=== PATIENT | male | born 1995 | race Caucasian/White ===

== ENCOUNTER 2020-02-21 02:47 | Inpatient (IN) ==
[2020-02-21] MEDS ORDERED: fentaNYL citrate 100 MCG/2 ML VIAL IV STA (03:04)
[2020-02-21] MEDS ORDERED: ONDANSETRON INJ 2 MG/ML 2 ML VIAL IV STA (03:04)
[2020-02-21] MEDS ORDERED: SODIUM CHLORIDE 0.9% 1000ML 1,000 ML IV SCH (03:15)
[2020-02-21 03:39] LABS: Basophils # (auto) 0.02 K/uL (0-0.2); Basophils % (auto) 0.2 %; Eosinophils # (auto) 0.02 K/uL (0-0.5); Eosinophils % (auto) 0.2 %; Hematocrit (blood only) 44.5 % (42-52); Hemoglobin 15.4 g/dL (14.0-18.0); Immature Granulocytes # (auto) 0.03 K/uL (0.00-0.02); Immature Granulocytes % (auto) 0.2 %; Lymphocytes # (auto) 1.03 K/uL (1.2-3.4); Lymphocytes % (auto) 8.4 %; Mean Corpuscular Hgb Conc 34.6 g/dL (32-36); Mean Corpuscular Volume 86.6 fL (80-100); Monocytes # (auto) 0.62 K/uL (0.11-0.59); Neutrophils # (auto) 10.59 K/uL (1.4-6.5); Platelet Count 248 K/uL (130-400); RDW Standard Deviation 38.3 fL (36.4-46.3); Red Blood Count 5.14 M/uL (4.7-6.1); White Blood Count 12.31 K/uL (4.8-10.8)
[2020-02-21 04:07] LABS: Albumin Level 4.4 gm/dl (3.4-5.0); BUN Creatinine Ratio 19.2 (10-20); Calcium 8.6 mg/dl (8.5-10.1); Creatinine Clr Calc Pharmacy 158.5 ml/min; Est GFR (African American) 137.2; Est GFR (Non-African American) 118.4; Potassium 4.1 mmol/L (3.5-5.1)
[2020-02-21 04:10] LABS: Albumin Globulin Ratio 1.2 (0.9-2); Bilirubin,Total 0.6 mg/dl (0.2-1); Globulin 3.6 gm/dl (2.5-4.0)
[2020-02-21] MEDS ORDERED: fentaNYL citrate 100 MCG/2 ML VIAL IV PRN ×2 (05:18→09:24)
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
--- NOTE | 2020-02-21 07:38 | Anesthesiology Consultation ---
Date of Service February 21, 2020 Assessment & Plan (1) Encounter for pre-operative examination: Chart Review Chart Review: Acceptable Risk for Surgery History Surgery Operation Date: 02/21/20 09:30 Proposed Procedures p Open Reduction Internal Fixation Arm(Left) - Lio Marquez DO Height/Weight Height: 6 ft 1 in Weight: 102 kg Allergies Allergy/AdvReac Type Severity Reaction Status Date / Time No Known Allergies Allergy Unverified 02/21/20 03:07 Medications Home Medications Medication Instructions Recorded Confirmed Last Taken escitalopram oxalate 10 mg PO DAILY 02/21/20 02/21/20 02/20/20 Active Medications Generic Name Dose Route Start Last Admin Trade Name Freq PRN Reason Stop Dose Admin Fentanyl Citrate 100 mcg 02/21/20 05:18 02/21/20 06:29 Fentanyl Citrate 100 Mcg/2 Ml Vial IV 03/06/20 05:17 100 mcg Q1H PRN Administration Pain NPO Date Last Intake of Fluids: 02/21/20 Time Last Intake of Fluids: 00:00 Date Last Intake of Solids: 02/21/20 Time Last Intake of Solids: 00:00 Past Medical History Medical History (Updated 02/21/20 @ 09:19 by Marlon Garcia MD) Anxiety Past Surgical History Surgical History (Updated 02/21/20 @ 09:19 by Marlon Garcia MD) Hx of removal of cyst Social History Smoking Status: Never smoker Physical Exam Vital Signs Last Vital Signs Temp 37.1 C 02/21/20 02:54 Pulse 84 02/21/20 08:30 Resp 22 02/21/20 08:30 BP 162/93 H 02/21/20 08:30 Pulse Ox 93 02/21/20 08:30 Testing Laboratory Results 02/21/20 03:18 02/21/20 03:18 Blood Type O Negative 02/21/20 03:18 Antibody Screen NEGATIVE 02/21/20 03:18
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
[2020-02-21] MEDS ORDERED: ROPIVACAINE 0.5% 5 MG/ML 30 ML VIAL ONE (07:49)
--- NOTE | 2020-02-21 07:52 | CT Scan Report ---
CERVICAL SPINE CT CT DOSE: HISTORY: trauma TECHNIQUE: Multiaxial CT images of the cervical spine were performed and reformatted in the sagittal and coronal plane without the use of contrast. A dose lowering technique was utilized adhering to th e principles of ALARA. COMPARISON: None. FINDINGS: No fractures. No subluxation. Prevertebral soft tissues and the C1-C2 interval are intact. No pneumothorax. IMPRESSION: No fractures within the cervical spine. ACT 112: Negative or not required by law. Electronically signed by: David Thomas M.D. 02/21/2020 7:50 AM
[2020-02-21] MEDS ORDERED: ONDANSETRON 4 MG OD TAB PO STA (08:01)
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
[2020-02-21] MEDS ORDERED: BACITRACIN INJ 50,000 UNIT VIAL ONE (09:17)
[2020-02-21] MEDS ORDERED: BUPIVACAINE 0.5 % 5 MG/1 ML MPF 30ML VIAL ONE (09:17)
[2020-02-21] MEDS ORDERED: ONDANSETRON INJ 2 MG/ML 2 ML VIAL IV PRN ×2 (09:24→14:36)
[2020-02-21] MEDS ORDERED: LABETALOL HCL IV 5 MG/ML 20ML IV PRN (09:24)
[2020-02-21] MEDS ORDERED: KETOROLAC 30 MG/ML VIAL IV PRN (09:24)
[2020-02-21] MEDS ORDERED: ATROPINE SULFATE 0.1 MG/ML 10ML SYR IV PRN (09:24)
--- NOTE | 2020-02-21 09:28 | History & Physical Bridge Note ---
Date of Service February 21, 2020 History & Physical Bridge Note I have examined the patient, reviewed the History & Physical and in the interval since the performance of the History & Physical I have noted the following changes of clinical significance: Will require open reduction internal fixation both bone forearm fractures with orthopedic plates and screws.
[2020-02-21] MEDS ORDERED: MIDAZOLAM HCL 1 MG/ML 2ML VIAL ONE ×2 (09:31)
[2020-02-21] MEDS ORDERED: fentaNYL citrate 100 MCG/2 ML VIAL ONE ×2 (09:32→11:51)
[2020-02-21] MEDS ORDERED: LIDOCAINE HCL 2% 2 ML VIAL/AMP(20MG/ML) INFIL ONE (10:31)
[2020-02-21] MEDS ORDERED: ONDANSETRON INJ 2 MG/ML 2 ML VIAL ONE (10:32)
[2020-02-21] MEDS ORDERED: PROPOFOL IV EMULSION 10 MG/ML 20 ML VIAL IV ONE (10:32)
[2020-02-21] MEDS ORDERED: PHENYLEPHRINE 100MCG/ML 5ML SYR ONE (10:32)
--- NOTE | 2020-02-21 10:47 | Electrocardiogram Report ---
Test Reason : Blood Pressure : / mmHG Vent. Rate : 085 BPM Atrial Rate : 085 BPM P-R Int : 144 ms QRS Dur : 088 ms QT Int : 358 ms P-R-T Axes : 039 063 020 degrees QTc Int : 426 ms Normal sinus rhythm Normal ECG No previous ECGs available Confirmed by Shilo Murillo ([id number]) on 02/21/2020 10:47:23 AM Referred By: REFERRED SELF Confirmed By:Donald Murillo
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
--- NOTE | 2020-02-21 12:31 | Fluoroscopy Report ---
FL forearm LT 2V CLINICAL HISTORY: ORIF LT FOREARM IN OR COMPARISON STUDY: Left forearm 02/21/2020. FLUOROSCOPY TIME: 35 seconds. FINDINGS: 5 fluoroscopic spot images of the proximal forearm demonstrate cortical plate and screws tr ansfixing the proximal radius and ulnar fractures. The hardware appears intact. Alignment appears niharika r-anatomic. IMPRESSION: Fluoroscopy provided for internal fixation of the left forearm fracture. ACT 112: Negative or not required by law. Electronically signed by: David Thomas M.D. 02/21/2020 12:30 PM
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
--- NOTE | 2020-02-21 14:11 | Anesthesiology Progress Note ---
Date of Service February 21, 2020 Anesthesia Post Procedure Vital Signs Vital Signs: Temp Pulse Pulse Resp BP BP Pulse Ox 02/21/20 14:00 104 H 18 128/84 94 02/21/20 13:50 103 H 17 128/78 95 02/21/20 13:42 37.5 C 101 H 18 116/63 95 02/21/20 08:30 84 22 162/93 H 93 02/21/20 08:00 88 22 153/90 H 95 02/21/20 07:30 90 23 150/93 H 94 02/21/20 07:00 92 H 14 155/98 H 93 02/21/20 06:30 91 H 24 152/89 H 93 02/21/20 06:00 18 128/56 L 94 02/21/20 05:30 134/74 94 02/21/20 05:00 91 H 24 147/85 H 93 02/21/20 04:36 90 18 152/87 H 93 02/21/20 04:34 89 24 152/87 H 93 02/21/20 04:00 104 H 24 140/88 93 02/21/20 03:36 106 H 24 142/106 H 95 02/21/20 03:26 103 H 18 94 02/21/20 03:18 96 02/21/20 02:54 37.1 C 104 H 20 155/96 H 95 Pain Intensity Left Arm: Pain Intensity: 0 Transfer of Care Handoff Completed per policy Notes Mental Status: alert / awake / arousable Patient Amnestic to Procedure: Yes Nausea / Vomiting: adequately controlled Pain: adequately controlled Airway Patency, RR, SpO2: stable & adequate BP & HR: stable & adequate Hydration State: stable & adequate Anesthetic Complications: no major complications apparent
[2020-02-21] MEDS ORDERED: diphenhydrAMINE Capsule 25 MG CAP PO PRN (14:36)
[2020-02-21] MEDS ORDERED: METOCLOPRAMIDE HCL INJ 5 MG/ML 2 ML VIAL IV PRN (14:36)
[2020-02-21] MEDS ORDERED: NALOXONE HCL 0.4 MG/1 ML VIAL/CARP IV PRN (14:36)
[2020-02-21] MEDS ORDERED: bisacodyL 10 MG SUPP PR PRN (14:36)
[2020-02-21] MEDS ORDERED: MAGNESIUM HYDROXIDE SUSP 30 ML UDC PO PRN (14:36)
[2020-02-21] MEDS: SODIUM CHLORIDE 0.9% 1000ML 1,000 ML IV SCH ×2 (14:45→23:17)
[2020-02-21] MEDS: ACETAMINOPHEN 500 MG TAB PO SCH ×2 (16:10→21:55)
[2020-02-21] MEDS: HYDROmorphone INJ 0.5 MG/0.5 ML SYR IV PRN ×3 (17:20→20:47)
[2020-02-21] MEDS: oxyCODONE HCL IR 5 MG TAB (IMMEDIATE RELEASE) PO PRN ×2 (17:29→23:20)
[2020-02-21] MEDS ORDERED: KETOROLAC 30 MG/ML VIAL ONE (18:37)
[2020-02-21] MEDS ORDERED: KETOROLAC TROMETHAMINE 15 MG/ML VIAL IM ONE (19:15)
[2020-02-21] MEDS: ceFAZolin 2000MG 2,000 MG/15 ML SYR IV SCH (19:42)
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
[2020-02-21] MEDS: SENNA 8.6 MG TAB PO SCH (20:51)
[2020-02-21] MEDS: DOCUSATE SODIUM 100 MG CAP PO SCH (20:51)
[2020-02-22] MEDS: ceFAZolin 2000MG 2,000 MG/15 ML SYR IV SCH (02:36)
[2020-02-22] MEDS: HYDROmorphone INJ 0.5 MG/0.5 ML SYR IV PRN ×2 (02:36→12:21)
[2020-02-22 02:43] LABS: Appearance Urine Clear (Clear); Bilirubin Urine Negative (Negative); Blood Urine Negative (Negative); Color Urine Dark Yellow; Glucose Urine UA Negative (Negative); Ketones Urine Negative (Negative); Leukocyte Esterase Urine Negative (Negative); Nitrite Urine Negative (Negative); Protein Urine Negative (Negative); Specific Gravity Urine 1.033 (1.000-1.030); Urobilinogen Urine Negative (Negative)
[2020-02-22] MEDS: ACETAMINOPHEN 500 MG TAB PO SCH ×3 (05:27→21:15)
[2020-02-22] MEDS: oxyCODONE HCL IR 5 MG TAB (IMMEDIATE RELEASE) PO PRN ×5 (05:28→21:14)
[2020-02-22 06:13] LABS: Hematocrit (blood only) 40.4 % (42-52); Hemoglobin 13.7 g/dL (14.0-18.0); Mean Corpuscular Hemoglobin 29.8 pg (25-34); Mean Corpuscular Hgb Conc 33.9 g/dL (32-36); Mean Corpuscular Volume 87.8 fL (80-100); Mean Platelet Volume 10.1 fL (7.4-10.4); Platelet Count 182 K/uL (130-400); RDW Standard Deviation 38.5 fL (36.4-46.3); White Blood Count 7.51 K/uL (4.8-10.8)
[2020-02-22 06:46] LABS: BUN Creatinine Ratio 12.7 (10-20); Calcium 8.1 mg/dl (8.5-10.1); Creatinine Clr Calc Pharmacy 155.1 ml/min; Est GFR (African American) 133.6; Est GFR (Non-African American) 115.3; Potassium 3.6 mmol/L (3.5-5.1)
[2020-02-22] MEDS: MULTIVITAMIN TAB PO SCH (07:32)
[2020-02-22] MEDS: ESCITALOPRAM OXALATE 10 MG TAB PO SCH (07:32)
[2020-02-22] MEDS: ASPIRIN 81 MG ECTAB PO SCH (07:32)
[2020-02-22] MEDS: DOCUSATE SODIUM 100 MG CAP PO SCH ×2 (07:35→21:14)
--- NOTE | 2020-02-22 11:39 | Orthopedic Progress Note ---
Date of Service February 22, 2020 Assessment & Plan (1) Closed fracture of middle of left radius and ulna: Postop day #1 status post 1. Open reduction and internal fixation of left proximal one-third radius and ulna fractures. 2. Delayed closure of dorsal lateral forearm incision with application of rubber catheter closure Dressing change today because of bloody saturation at the posterior aspect of the elbow. Posterior splint reapplied. Ice and elevate as much as possible throughout the day to decrease swelling. We will have the patient be n.p.o. after midnight tonight for possible wound closure tomorrow. Discharge planningwe will discharge after wounds have been closed. DVT prophylaxisaspirin 81 mg daily for 30 days. Admission and Anticipated Discharge Date Admission Date: February 21, 2020 Subjective Pain is controlled in the left upper extremity. With motion of the left upper extremity for dressing change she does complain of pain and some nausea. He states he has sensation within the left hand but does have a little bit of tingling. Denies chest pain, shortness of breath, lightheadedness. Physical Exam Constitutional: WD/WN, vitals as above no acute distress Musculoskeletal: Extremities: + elbow/forearm abnormality Left (Moderate swelling of the left hand. No erythema. Tender with manipulation of the left upper extremity for dressing change.) Skin: no rashes, warm and dry Left upper extremity: The incision along the ulna is well approximated. No drainage or erythema noted. The radial incision is stable with rubber catheter closure intact at the distal aspect of the incision. The proximal aspect of the incision is well approximated. Neurologic: Mild paresthesias within the left hand. Sensation in tact to light touch. He is able to move all fingers on the left side. Active wrist extension and flexion intact with minimal motion. Psychiatric: A+Ox3, euthymic affect Speech: normal rate/rhythm/volume of speech Results & Data ([facility]) Vital Signs (Past 12 Hours) Vital Signs Temp Pulse Resp BP Pulse Ox 02/22/20 07:34 37.3 C 99 H 18 146/90 H 92 02/21/20 23:49 36.9 C 79 14 148/92 H 95
[2020-02-22] MEDS: SENNA 8.6 MG TAB PO SCH (21:14)
[2020-02-23] MEDS: oxyCODONE HCL IR 5 MG TAB (IMMEDIATE RELEASE) PO PRN (04:09)
[2020-02-23] MEDS: ACETAMINOPHEN 500 MG TAB PO SCH ×3 (06:20→21:16)
[2020-02-23] MEDS: MULTIVITAMIN TAB PO SCH (08:11)
[2020-02-23] MEDS: ASPIRIN 81 MG ECTAB PO SCH (08:12)
[2020-02-23] MEDS: DOCUSATE SODIUM 100 MG CAP PO SCH ×2 (08:12→21:15)
[2020-02-23] MEDS: ESCITALOPRAM OXALATE 10 MG TAB PO SCH (08:12)
--- NOTE | 2020-02-23 15:55 | Anesthesiology Consultation ---
Date of Service February 23, 2020 Assessment & Plan (1) Encounter for pre-operative examination: Chart Review Chart Review: Acceptable Risk for Surgery and Patient NOT seen in Pre Admission Testing covid negative 02/21/2020 Consults Requested none History Surgery Operation Date: 02/21/20 09:30 Proposed Procedures p Open Reduction Internal Fixation Arm(Left) - Lio Marquez DO Operation Date: 02/23/20 07:00 Proposed Procedures p Left Upper Extremity Closure of Surgical Wound - Lio Marquez DO Height/Weight Height: 6 ft 1 in Weight: 102 kg Allergies Allergy/AdvReac Type Severity Reaction Status Date / Time No Known Allergies Allergy Unverified 02/21/20 03:07 Medications Home Medications Medication Instructions Recorded Confirmed Last Taken aspirin 81 mg PO DAILY #30 tab 02/21/20 Unknown escitalopram oxalate 10 mg PO DAILY 02/21/20 02/21/20 02/20/20 oxycodone-acetaminophen [Percocet] 1 tab PO Q4H PRN #20 tab 02/21/20 Unknown Active Medications Generic Name Dose Route Start Last Admin Trade Name Freq PRN Reason Stop Dose Admin Acetaminophen 1,000 mg 02/21/20 14:36 02/23/20 13:47 Acetaminophen 500 Mg Tab PO 03/22/20 14:35 1,000 mg Q8 LUCIA Administration Aspirin 81 mg 02/22/20 09:00 02/23/20 08:12 Aspirin 81 Mg Ectab PO 03/23/20 08:59 81 mg DAILY LUCIA Administration Docusate Sodium 100 mg 02/21/20 21:00 02/23/20 08:12 Docusate Sodium 100 Mg Cap PO 03/22/20 20:59 100 mg BID LUCIA Administration Escitalopram Oxalate 10 mg 02/22/20 09:00 02/23/20 08:12 Escitalopram Oxalate 10 Mg Tab PO 03/23/20 08:59 10 mg DAILY LUCIA Administration Hydromorphone HCl 0.5 mg 02/21/20 14:36 02/22/20 12:21 Hydromorphone Inj 0.5 Mg/0.5 Ml Syr IV 03/06/20 14:35 0.5 mg Q2H PRN Administration Pain or Pre PT Multivitamins 1 tab 02/22/20 09:00 02/23/20 08:11 Multivitamin Tab PO 11/03/20 08:59 1 tab QAM LUCIA Administration Ondansetron HCl 4 mg 02/21/20 14:36 02/22/20 09:24 Ondansetron Inj 2 Mg/Ml 2 Ml Vial IV 03/22/20 14:35 4 mg Q6H PRN Administration Nausea And Vomiting Oxycodone HCl 5 - 10 mg 02/21/20 14:36 02/23/20 04:09 Oxycodone Hcl Ir 5 Mg Tab (Immediate Release) PO 03/06/20 14:35 10 mg Q4H PRN Administration Pain or Pre PT Sennosides 17.2 mg 02/21/20 21:00 02/22/20 21:14 Senna 8.6 Mg Tab PO 03/22/20 20:59 17.2 mg HS LUCIA Administration NPO Date Last Intake of Fluids: 02/21/20 Time Last Intake of Fluids: 00:00 Date Last Intake of Solids: 02/21/20 Time Last Intake of Solids: 00:00 Past Medical History Medical History Anxiety Exercise / Class Metabolic Activity II 4-5 Yardwork/Stairs/Walk up hill Past Surgical History Surgical History Hx of removal of cyst Past Anesthesia History No Hx of Anesthesia Complications and No Family Hx of Anesthesia Complications History of PONV No Hx of PONV and No Hx of Motion Sickness Social History Smoking Status: Never smoker Hx Alcohol Use: Yes Physical Exam Vital Signs Last Vital Signs Temp 37 C 02/23/20 16:48 Pulse 88 02/23/20 16:48 Resp 20 02/23/20 16:48 BP 150/91 H 02/23/20 16:48 Pulse Ox 98 02/23/20 16:48 Testing Laboratory Results 02/22/20 05:14 02/22/20 05:14 Urine Color Dark Yellow 02/22/20 02:33 Urine Appearance Clear (Clear) 02/22/20 02:33 Urine pH 6.0 (4.5-7.5) 02/22/20 02:33 Ur Specific [place] 1.033 (1.000-1.030) H 02/22/20 02:33 Urine Protein Negative (Negative) 02/22/20 02:33 Urine Glucose (UA) Negative (Negative) 02/22/20 02:33 Urine Ketones Negative (Negative) 02/22/20 02:33 Urine Nitrite Negative (Negative) 02/22/20 02:33 Ur Leukocyte Esterase Negative (Negative) 02/22/20 02:33 Blood Type O Negative 02/21/20 03:18 Antibody Screen NEGATIVE 02/21/20 03:18 Electrocardiogram Date: 02/21/20 Findings: + NSR @ (85) Normal sinus rhythm Normal ECG No previous ECGs available Confirmed by Shilo Murillo ([id number]) on 02/21/2020 10:47:23 AM Chest X-Ray Date: 02/21/20 XR chest 1V portable CLINICAL HISTORY: Pain status post trauma COMPARISON STUDY: No previous studies for comparison. FINDINGS: The cardiac and mediastinal contours are normal. There is no evidence of focal pulmonary consolidation. There is no evidence of failure. No pleural effusions are visualized.[No pneumothorax is visualized. IMPRESSION: No active disease in the chest.
[2020-02-23] MEDS ORDERED: MIDAZOLAM HCL 1 MG/ML 2ML VIAL ONE (16:55)
[2020-02-23] MEDS ORDERED: PROPOFOL IV EMULSION 10 MG/ML 20 ML VIAL IV ONE (16:56)
[2020-02-23] MEDS ORDERED: fentaNYL citrate 100 MCG/2 ML VIAL ONE ×2 (16:56→18:05)
[2020-02-23] MEDS ORDERED: ePHEDrine sulfate 50 MG/ML AMP IV PRN (16:56)
[2020-02-23] MEDS ORDERED: ONDANSETRON INJ 2 MG/ML 2 ML VIAL IV PRN (16:56)
[2020-02-23] MEDS ORDERED: HYDROmorphone INJ 1 MG/ML SYRINGE IV PRN (16:56)
[2020-02-23] MEDS ORDERED: ATROPINE SULFATE 0.1 MG/ML 10ML SYR IV PRN (16:56)
[2020-02-23] MEDS ORDERED: DEXAMETHASONE SOD INJ 4 MG/ML VIAL ONE ×2 (16:56)
[2020-02-23] MEDS ORDERED: fentaNYL citrate 100 MCG/2 ML VIAL IV PRN (16:56)
[2020-02-23] MEDS ORDERED: ONDANSETRON INJ 2 MG/ML 2 ML VIAL ONE (16:56)
[2020-02-23] MEDS ORDERED: LIDOCAINE HCL 2% 2 ML VIAL/AMP(20MG/ML) INFIL ONE (16:56)
--- NOTE | 2020-02-23 17:22 | History & Physical Bridge Note ---
Date of Service February 23, 2020 History & Physical Bridge Note I have examined the patient, reviewed the History & Physical and in the interval since the performance of the History & Physical I have noted the following changes of clinical significance: Will require irrigation and debridement left dorsal lateral forearm incision and delayed primary closure to be performed today in the OR.
[2020-02-23] MEDS: BUPIVACAINE 0.5 % 5 MG/1 ML MPF 30ML VIAL ONE ×2 (17:38→18:20)
[2020-02-23] MEDS: BACITRACIN INJ 50,000 UNIT VIAL ONE ×2 (17:38→18:20)
--- NOTE | 2020-02-23 18:45 | Post Operative Brief Note ---
Immediate Post Op Note v1 Date of Surgery February 23, 2020 Pre & Post Diagnosis Operation Date: 02/21/20 09:30 Pre-Op Diagnosis: 100% displaced, closed ulnar and radial fractures left arm; neuropraxia ulnar left arm; crush injury Post-Op Diagnosis: 100% displaced, closed ulnar and radial fractures left arm; neuropraxia ulnar left arm; crush injury Operation Date: 02/23/20 07:00 Pre-Op Diagnosis: Delayed closure of dorsal left lateral forearm incision, crush injury forearm left, neurapraxia ulnar left arm, both bone forearm fracture status post ORIF, delayed healing surgical incision Post-Op Diagnosis: Delayed closure of dorsal left lateral forearm incision, crush injury forearm left, neurapraxia ulnar left arm, both bone forearm fracture status post ORIF, delayed healing surgical incision I identified the patient and participated in the time-out.: Yes Procedure Operation Date: 02/21/20 09:30 Actual Procedures p Open Reduction Internal Fixation 100% displaced left closed ulnar and radial fractures, crush injury(Left) - Lio Marquez DO Operation Date: 02/23/20 07:00 Actual Procedures p Irrigation and debridement left forearm incision, placement of Asaf drains (x4), partial delayed primary wound closure left forearm (Bilateral) - Lio Maqruez DO Surgeon Lio Marquez DO Paleobotanist None Estimated Blood Loss 20 Findings Consistent with Post-Op Diagnosis Specimens None Drains Asaf Drain (x4) Anesthesia Type General Regional Complications none Disposition Accompanied Patient To Recovery: No Disposition: Recovery Room
--- NOTE | 2020-02-23 19:10 | Anesthesiology Progress Note ---
Date of Service February 23, 2020 Anesthesia Post Procedure Vital Signs Vital Signs: Temp Pulse Pulse Pulse Resp BP Pulse Ox 02/23/20 19:00 81 16 152/101 H 93 02/23/20 18:50 89 16 160/108 H 94 02/23/20 18:42 36.8 C 98 H 16 169/112 H 96 02/23/20 16:48 37 C 88 20 150/91 H 98 02/23/20 15:10 36.7 C 78 21 149/96 H 95 02/23/20 07:41 37 C 81 18 145/88 H 94 02/22/20 23:48 37.3 C 80 16 151/94 H 90 Pain Intensity Left Arm: Pain Intensity: 3 Transfer of Care Handoff Completed per policy Notes Mental Status: alert / awake / arousable and participated in evaluation Patient Amnestic to Procedure: Yes Nausea / Vomiting: adequately controlled Pain: adequately controlled Airway Patency, RR, SpO2: stable & adequate BP & HR: stable & adequate Hydration State: stable & adequate Anesthetic Complications: no major complications apparent and Pt Satisfied with anesthetic care
[2020-02-23] MEDS: SENNA 8.6 MG TAB PO SCH (21:15)
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
[2020-02-24] MEDS: ACETAMINOPHEN 500 MG TAB PO SCH ×3 (06:15→21:51)
[2020-02-24] MEDS: ESCITALOPRAM OXALATE 10 MG TAB PO SCH (09:15)
[2020-02-24] MEDS: ASPIRIN 81 MG ECTAB PO SCH (09:15)
[2020-02-24] MEDS: DOCUSATE SODIUM 100 MG CAP PO SCH ×2 (09:15→19:36)
[2020-02-24] MEDS: MULTIVITAMIN TAB PO SCH (09:15)
[2020-02-24] MEDS: oxyCODONE HCL IR 5 MG TAB (IMMEDIATE RELEASE) PO PRN (09:20)
--- NOTE | 2020-02-24 10:35 | Orthopedic Progress Note ---
Date of Service February 24, 2020 Assessment & Plan (1) Closed fracture of middle of left radius and ulna: Postop day #3 status post 1. Open reduction and internal fixation of left proximal one-third radius and ulna fractures. 2. Delayed closure of dorsal lateral forearm incision with application of rubber catheter closure Unable to do a primary closure yesterday. Planning for primary closure tomorrow. Ice and elevate as much as possible throughout the day to decrease swelling. We will have the patient be n.p.o. after midnight tonight for possible wound closure tomorrow. Discharge planningwe will discharge after wounds have been closed. DVT prophylaxisaspirin 81 mg daily for 30 days. Admission and Anticipated Discharge Date Admission Date: February 21, 2020 Subjective Patient currently sitting up in his chair at the bedside. Pain is controlled today. No complaints. Left upper extremity is in his sling at this time. Physical Exam Physical Exam: Dressings are clean, dry, and intact. Patient feels that he has a little less swelling in his hand and fingers today. Cap refill is less than 2 seconds. He has good flexion of all the fingers at this time but has weak extension with the third through fifth fingers. He states that the sensation is returning to the fourth and fifth fingers and it feels just like [id number] at this point in time. Results & Data ([facility]) Vital Signs (Past 12 Hours) Vital Signs Temp Pulse Resp BP Pulse Ox 02/24/20 09:30 36.6 C 91 H 20 139/87 96 02/24/20 03:55 36.7 C 63 16 129/83 95 02/23/20 23:41 36.9 C 72 16 137/82 95
[2020-02-24] MEDS: SENNA 8.6 MG TAB PO SCH (19:36)
[2020-02-25] MEDS: ACETAMINOPHEN 500 MG TAB PO SCH ×3 (06:29→21:28)
[2020-02-25] MEDS: ASPIRIN 81 MG ECTAB PO SCH (09:51)
[2020-02-25] MEDS: MULTIVITAMIN TAB PO SCH (09:51)
[2020-02-25] MEDS: DOCUSATE SODIUM 100 MG CAP PO SCH ×2 (09:51→21:28)
[2020-02-25] MEDS: ESCITALOPRAM OXALATE 10 MG TAB PO SCH (09:51)
[2020-02-25] MEDS ORDERED: fentaNYL citrate 100 MCG/2 ML VIAL ONE ×2 (15:04→17:05)
[2020-02-25] MEDS ORDERED: MIDAZOLAM HCL 1 MG/ML 2ML VIAL ONE (15:05)
[2020-02-25] MEDS ORDERED: BACITRACIN INJ 50,000 UNIT VIAL ONE (16:01)
[2020-02-25] MEDS ORDERED: BUPIVACAINE 0.5 % 5 MG/1 ML MPF 30ML VIAL ONE (16:02)
[2020-02-25] MEDS ORDERED: PROMETHAZINE HCL 12.5 MG in SODIUM CHLORIDE 0.9% 50 ML IV PRN (16:11)
[2020-02-25] MEDS ORDERED: fentaNYL citrate 100 MCG/2 ML VIAL IV PRN (16:11)
[2020-02-25] MEDS ORDERED: HYDROmorphone INJ 2 MG/ML SYR/VIAL IV PRN (16:11)
[2020-02-25] MEDS ORDERED: ONDANSETRON INJ 2 MG/ML 2 ML VIAL IV PRN (16:11)
[2020-02-25] MEDS ORDERED: ATROPINE SULFATE 0.1 MG/ML 10ML SYR IV PRN (16:11)
[2020-02-25] MEDS ORDERED: ePHEDrine sulfate 50 MG/ML AMP IV PRN (16:11)
--- NOTE | 2020-02-25 16:11 | Anesthesiology Consultation ---
Date of Service February 25, 2020 Assessment & Plan ASA ASA2 Proposed Anesthesia Anesthesia Type: General Risk / Benefits Reviewed With: PT / POA / Parent / Guardian, Accepts Plan and Informed Consent Obtained History Surgery Operation Date: 02/21/20 09:30 Proposed Procedures p Open Reduction Internal Fixation Arm(Left) - Lio Marquez DO Operation Date: 02/23/20 07:00 Proposed Procedures p Left Upper Extremity Closure of Surgical Wound - Lio Marquez DO Operation Date: 02/25/20 07:00 Proposed Procedures p Left Arm Irrigation and Debridement with Primary Wound Closure - Lio Marquez DO Height/Weight Height: 6 ft 1 in Weight: 102 kg Allergies Allergy/AdvReac Type Severity Reaction Status Date / Time No Known Allergies Allergy Unverified 02/21/20 03:07 Medications Home Medications Medication Instructions Recorded Confirmed Last Taken aspirin 81 mg PO DAILY #30 tab 02/21/20 Unknown escitalopram oxalate 10 mg PO DAILY 02/21/20 02/21/20 02/20/20 oxycodone-acetaminophen [Percocet] 1 tab PO Q4H PRN #20 tab 02/21/20 Unknown Active Medications Generic Name Dose Route Start Last Admin Trade Name Freq PRN Reason Stop Dose Admin Acetaminophen 1,000 mg 02/21/20 14:36 02/25/20 13:26 Acetaminophen 500 Mg Tab PO 03/22/20 14:35 1,000 mg Q8 LUCIA Administration Aspirin 81 mg 02/22/20 09:00 02/25/20 09:51 Aspirin 81 Mg Ectab PO 03/23/20 08:59 Not Given DAILY LUICA Docusate Sodium 100 mg 02/21/20 21:00 02/25/20 09:51 Docusate Sodium 100 Mg Cap PO 03/22/20 20:59 100 mg BID LUCIA Administration Escitalopram Oxalate 10 mg 02/22/20 09:00 02/25/20 09:51 Escitalopram Oxalate 10 Mg Tab PO 03/23/20 08:59 10 mg DAILY LUCIA Administration Hydromorphone HCl 0.5 mg 02/21/20 14:36 02/22/20 12:21 Hydromorphone Inj 0.5 Mg/0.5 Ml Syr IV 03/06/20 14:35 0.5 mg Q2H PRN Administration Pain or Pre PT Multivitamins 1 tab 02/22/20 09:00 02/25/20 09:51 Multivitamin Tab PO 03/23/20 08:59 1 tab QAM LUCIA Administration Ondansetron HCl 4 mg 02/21/20 14:36 02/22/20 09:24 Ondansetron Inj 2 Mg/Ml 2 Ml Vial IV 03/22/20 14:35 4 mg Q6H PRN Administration Nausea And Vomiting Oxycodone HCl 5 - 10 mg 02/21/20 14:36 02/24/20 09:20 Oxycodone Hcl Ir 5 Mg Tab (Immediate Release) PO 03/06/20 14:35 10 mg Q4H PRN Administration Pain or Pre PT Sennosides 17.2 mg 02/21/20 21:00 02/24/20 19:36 Senna 8.6 Mg Tab PO 03/22/20 20:59 17.2 mg HS LUCIA Administration NPO Date Last Intake of Fluids: 02/23/20 Time Last Intake of Fluids: 00:00 Last Intake of Fluids Comment: sip of water with pills today Date Last Intake of Solids: 02/23/20 Time Last Intake of Solids: 00:00 Past Medical History Medical History Anxiety Exercise / Class Metabolic Activity II 4-5 Yardwork/Stairs/Walk up hill Past Surgical History Surgical History Hx of removal of cyst Past Anesthesia History No Hx of Anesthesia Complications and No Family Hx of Anesthesia Complications History of PONV No Hx of PONV and No Hx of Motion Sickness Social History Smoking Status: Never smoker Hx Alcohol Use: Yes Review of Systems denies fever/cough/ colds/ chest pain/ SOB/ DELMI Constitutional: no fever and no chills Respiratory: no cough and no dyspnea denies DELMI Cardiovascular: no chest pain and no dyspnea on exertion Physical Exam Vital Signs Last Vital Signs Temp 36.9 C 02/25/20 15:54 Pulse 84 02/25/20 15:54 Resp 16 02/25/20 15:54 BP 154/95 H 02/25/20 15:54 Pulse Ox 97 02/25/20 15:54 ENMT Mouth: no TMJ abnormality and no dentition abnormality Thyromental Distance: > or= 3.5 Finger Breadths Mallampati Class: I Neck + facial hair; neck extension not limited Respiratory normal respiratory effort; no respiratory distress Auscultation: lungs clear to auscultation bilaterally Cardiovascular Rate/Rhythm: regular rate and regular rhythm Neurologic moves all extremities Psychiatric Orientation: alert and oriented x 3 Testing Laboratory Results 02/22/20 05:14 02/22/20 05:14 Urine Color Dark Yellow 02/22/20 02:33 Urine Appearance Clear (Clear) 02/22/20 02:33 Urine pH 6.0 (4.5-7.5) 02/22/20 02:33 Ur Specific Milo 1.033 (1.000-1.030) H 02/22/20 02:33 Urine Protein Negative (Negative) 02/22/20 02:33 Urine Glucose (UA) Negative (Negative) 02/22/20 02:33 Urine Ketones Negative (Negative) 02/22/20 02:33 Urine Nitrite Negative (Negative) 02/22/20 02:33 Ur Leukocyte Esterase Negative (Negative) 02/22/20 02:33 Blood Type O Negative 02/21/20 03:18 Antibody Screen NEGATIVE 02/21/20 03:18 Electrocardiogram Date: 02/21/20 Findings: + NSR @ (85) Normal sinus rhythm Normal ECG No previous ECGs available Confirmed by Shilo Murillo ([id number]) on 02/21/2020 10:47:23 AM Chest X-Ray Date: 02/21/20 XR chest 1V portable CLINICAL HISTORY: Pain status post trauma COMPARISON STUDY: No previous studies for comparison. FINDINGS: The cardiac and mediastinal contours are normal. There is no evidence of focal pulmonary consolidation. There is no evidence of failure. No pleural effusions are visualized.[No pneumothorax is visualized. IMPRESSION: No active disease in the chest.
--- NOTE | 2020-02-25 16:26 | History & Physical Bridge Note ---
Date of Service February 25, 2020 History & Physical Bridge Note I have examined the patient, reviewed the History & Physical and in the interval since the performance of the History & Physical I have noted the following changes of clinical significance: no changes noted
[2020-02-25] MEDS ORDERED: PROPOFOL IV EMULSION 10 MG/ML 20 ML VIAL IV ONE (17:04)
[2020-02-25] MEDS ORDERED: LIDOCAINE HCL 2% 2 ML VIAL/AMP(20MG/ML) INFIL ONE (17:05)
[2020-02-25] MEDS ORDERED: DEXAMETHASONE SOD INJ 4 MG/ML VIAL ONE (17:05)
[2020-02-25] MEDS ORDERED: ONDANSETRON INJ 2 MG/ML 2 ML VIAL ONE (17:05)
[2020-02-25] MEDS ORDERED: KETOROLAC 30 MG/ML VIAL ONE (17:05)
--- NOTE | 2020-02-25 17:50 | Post Operative Brief Note ---
Immediate Post Op Note v1 Date of Surgery February 25, 2020 Pre & Post Diagnosis Operation Date: 02/21/20 09:30 Pre-Op Diagnosis: 100% displaced, closed ulnar and radial fractures left arm; neuropraxia ulnar left arm; crush injury Post-Op Diagnosis: 100% displaced, closed ulnar and radial fractures left arm; neuropraxia ulnar left arm; crush injury Operation Date: 02/23/20 07:00 Pre-Op Diagnosis: Delayed closure of dorsal left lateral forearm incision Post-Op Diagnosis: Delayed closure of left dorsal lateral forearm incision Operation Date: 02/25/20 07:00 Pre-Op Diagnosis: 1. Left forearm delayed closure of dorsal lateral forearm incision. 2. Status post crush injury, left forearm. 3. Neurapraxia ulnar nerve, left arm. 4. Both bone forearm fracture status post open reduction internal fixation. 5. Delayed healing surgical incision. Post-Op Diagnosis: 1. Left forearm delayed closure of dorsal lateral forearm incision. 2. Status post crush injury, left forearm. 3. Neurapraxia ulnar nerve, left arm. 4. Both bone forearm fracture status post open reduction internal fixation. 5. Delayed healing surgical incision. I identified the patient and participated in the time-out.: Yes Procedure Operation Date: 02/21/20 09:30 Actual Procedures p Open Reduction Internal Fixation 100% displaced left closed ulnar and radial fractures, crush injury(Left) - Lio Marquez DO Operation Date: 02/23/20 07:00 Actual Procedures p Irrigation and debridement, placement of kuldeep drains (x4), partial delayed primary wound closure-left forearm(Left) - Lio Marquez DO Operation Date: 02/25/20 07:00 Actual Procedures p Left Forearm Irrigation and Debridement skin, subcutaneous tissue and fascia; Delayed Primary Wound Closure forearm (Left) - Lio Marquez DO Surgeon Lio Marquez DO Gas Leak Tester None Estimated Blood Loss 5 Findings Consistent with Post-Op Diagnosis Specimens None Drains Kuldeep Drain (x4) Anesthesia Type General Regional Complications none Disposition Accompanied Patient To Recovery: No Disposition: Recovery Room
--- NOTE | 2020-02-25 18:38 | XRay Report ---
XR forearm LT 2V CLINICAL HISTORY: Ulnar and radial fracture status post internal fixation COMPARISON: 02/21/2020 DISCUSSION: There is been internal fixation of the previously identified fractures of the radius and ulna. Each fracture has been fixated with a metallic plate and 6 screws. The alignment appears anatom ic.. There is an overlying fiberglass splint. IMPRESSION: Internally fixated radial and ulnar fractures in anatomic alignment ACT 112: Negative or not required by law. Electronically signed by: Nic Crowe M.D. 02/25/2020 6:37 PM
--- NOTE | 2020-02-25 18:45 | Anesthesiology Progress Note ---
Date of Service February 25, 2020 Anesthesia Post Procedure Vital Signs Vital Signs: Temp Pulse Pulse Resp BP Pulse Ox 02/25/20 18:25 37 C 63 16 131/83 95 02/25/20 18:15 68 14 140/84 96 02/25/20 18:05 70 15 146/88 H 100 02/25/20 17:56 36.3 C L 64 15 110/71 100 02/25/20 16:11 37.1 C 81 18 145/84 H 96 02/25/20 15:54 36.9 C 84 16 154/95 H 97 02/25/20 07:25 36.9 C 63 18 129/69 96 02/24/20 23:53 36.5 C 70 15 121/67 97 02/24/20 19:42 36.8 C 78 18 122/74 95 Pain Intensity Left Arm: Pain Intensity: 4 Transfer of Care Handoff Completed per policy Notes Mental Status: alert / awake / arousable and participated in evaluation Patient Amnestic to Procedure: Yes Nausea / Vomiting: adequately controlled Pain: adequately controlled Airway Patency, RR, SpO2: stable & adequate BP & HR: stable & adequate Hydration State: stable & adequate Anesthetic Complications: no major complications apparent and Pt Satisfied with anesthetic care
[2020-02-25] MEDS: SENNA 8.6 MG TAB PO SCH (21:28)
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
[2020-02-26] MEDS: oxyCODONE HCL IR 5 MG TAB (IMMEDIATE RELEASE) PO PRN ×2 (02:38→10:21)
[2020-02-26] MEDS: ACETAMINOPHEN 500 MG TAB PO SCH (06:47)
[2020-02-26] MEDS: DOCUSATE SODIUM 100 MG CAP PO SCH (07:43)
[2020-02-26] MEDS: ASPIRIN 81 MG ECTAB PO SCH (07:44)
[2020-02-26] MEDS: ESCITALOPRAM OXALATE 10 MG TAB PO SCH ×2 (07:44→09:05)
[2020-02-26] MEDS: MULTIVITAMIN TAB PO SCH (07:44)
--- NOTE | 2020-02-26 09:41 | Orthopedic Progress Note ---
Date of Service February 26, 2020 Assessment & Plan (1) Closed fracture of middle of left radius and ulna: POD #1, Left forearm I&D with delayed wound closure. Pain control. Ice/ elevate D/C home today D/U w Dr. Marquez next week. Postop day #3 status post 1. Open reduction and internal fixation of left proximal one-third radius and ulna fractures. 2. Delayed closure of dorsal lateral forearm incision with application of rubber catheter closure Unable to do a primary closure yesterday. Planning for primary closure tomorrow. Ice and elevate as much as possible throughout the day to decrease swelling. We will have the patient be n.p.o. after midnight tonight for possible wound closure tomorrow. Discharge planningwe will discharge after wounds have been closed. DVT prophylaxisaspirin 81 mg daily for 30 days. Admission and Anticipated Discharge Date Admission Date: February 21, 2020 Subjective POd #1, feeling well. Denies SOB, CP, N/V, Dizzines. Pain controlled well. Physical Exam Physical Exam: Left arm dressings/ splint c/d/i. Fingers mobile. A&Ox3. Results & Data ([facility]) Vital Signs (Past 12 Hours) Vital Signs Temp Pulse Resp BP Pulse Ox 02/26/20 09:25 36.9 C 74 18 150/89 H 94 02/26/20 07:24 36.9 C 74 18 150/89 H 94 02/26/20 03:10 37.0 C 58 L 16 151/92 H 96 02/26/20 00:10 36.8 C 58 L 16 138/80 96 02/25/20 22:00 37 C 76 16 160/74 H 95
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
== END 2020-02-26 10:56 | disposition home or self-care (01) | DRG 465 ==
LOC: ED 02:47 → ASU 08:45 → 3W 13:21